=== PATIENT | female | born 1935 | race Caucasian/White ===

== ENCOUNTER 2025-03-25 16:01 | Outpatient (AMB) | payer MEDICARE, SELFPAY ==
--- NOTE | 2025-03-25 16:04 | MHC.OFFVIS ---
Intake Visit Reasons: 6m/PN Accompanied by: Daughter Allergies No Known Allergies Allergy (Verified 03/25/25 16:12) Medication List - Last Reconciled 03/25/25 by Andra Whitley CNP atorvastatin 80 mg PO DAILY diltiazem HCl ER (DILT-XR) 120 mg PO DAILY furosemide 20 mg PO DAILY metformin ER 1,500 mg PO QPM pregabalin 300 mg PO BID 90 days HPI Comments Details: She was doing about the same. Pain in legs was about the same, slightly more bothersome and she was asking about increased dose of pregabalin. Pain was okay during the day for the most part and was more bothersome when she was sitting and relaxing in the evening. She was having more sharp, shooting pains to left leg, especially at night time. She had some throbbing pain to left foot. No recent falls. She has been having some swelling to lower legs. No redness, warmth, calf pain or tenderness. She has not had any testing/imaging done due to cost/insurance coverage. 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 She was found to have diabetes that has been well controlled with oral medications a few years after onset of symptoms. Has some difficulty going up and down stairs, unable to walk very far. Brief syncopal episode on 12/13/2017 where she found herself suddenly on the kitchen floor without remembering the fall when she was alone. No confusion, injury, or incontinence. [facility] Medical History (Updated 03/25/25 @ 16:30 by Andra Whitley CNP) Syncope Carpal tunnel syndrome Hypertension Diabetes mellitus Peripheral neuropathy Review of Systems Const Denies chills, Denies daytime sleepiness, Reports difficulty sleeping, Denies fatigue, Denies fever(s), Denies frequent falls, Denies headache(s), Denies increased appetite, Denies poor appetite, Denies snoring, Denies weakness, Denies weight gain and Denies weight loss Eyes Denies loss of vision ENT Denies vertigo, Denies dizziness, Denies headache(s) and Denies neck pain Card Denies chest pain at rest, Denies chest pain with activity, Denies syncope, Reports leg edema, Denies palpitations, Denies dyspnea and Denies dyspnea on exertion Resp Denies cough, Denies dyspnea, Denies dyspnea on exertion and Denies snoring GI Denies abdominal pain, Denies constipation, Denies heartburn, Denies diarrhea and Denies nausea Denies urinary frequency, Denies urinary incontinence and Denies urinary urgency Musc Reports abnormal gait (balance difficulty), Reports back pain, Denies myalgias, Reports arthralgias, Denies neck pain, Reports numbness and Reports tingling Neuro Reports abnormal gait (balance difficulty), Denies vertigo, Denies dizziness, Denies syncope, Denies frequent falls, Denies headache(s), Denies lack of coordination, Denies loss of vision, Denies memory loss, Reports numbness, Denies Other visual disturbances, Denies restless legs, Denies seizure-like activity, Reports tingling, Denies paresthesias, Denies tremor(s) and Denies weakness Psych Denies anxiety, Denies depression, Denies auditory hallucinations, Denies memory loss and Denies visual hallucinations Endo Denies fatigue and Denies palpitations Physical Exam Const Other: General Appearance:? normal, in no acute distress. Heart:? S1, S2 normal, no murmurs. Lungs:? clear anteriorly and posteriorly. Musculoskeletal:? normal. Extremities:? BLE edema R > L. Psych:? alert, oriented, cognitive function intact, cooperative with exam. Neuro Other: Abnormal Neurological Findings:?Decreased pinprick sensation below the midshin level. Decreased vibration below the mid tarsal level. DTR trace. Weakness of the abductor pollicis brevis muscle, R > L. Mental Status: alert and oriented X 3. Normal attention, orientation, memory, and affect. Cranial Nerves: Pupils are equal, round, and reactive to light. External ocular muscles are intact. Visual posadas are full, no ptosis. Face is symmetrical, no facial weakness or droop. Facial sensations are normal. Tongue protrudes in midline. Palate elevates symmetrically. Shoulder shrugging is normal. Hearing is decreased. Motor Examination: As above, otherwise normal muscle tone, bulk and strength. No atrophy or fasciculations. No drift of the extended upper extremities. DTR trace. Sensory Exam: As above, otherwise normal light touch, temperature, pinprick, vibration, and joint-position sensations. Rhomberg sign is absent. Coordination: No ataxia. No titubation. Gait Exam: Slow and cautious. Cerebellar Signs: [id number] is okay. Extrapyramidal System: No tremor, rigidity with normal facial expressions. No bradykinesia. No bradyphrenia. Normal arm swing and posture. No propulsion or retropulsion. Speech: Normal. Results Reviewed Results Reviewed: X-ray of the lumbosacral spine shows L4-5 anterior subluxation and degen disc changes 07/18/17 NCV/EMG: Moderate bilateral Carpal tunnel syndrome in the upper extremities. 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 Normal EMG in the right C5-T1 and right L4-S1 innervated muscles. 12/30/17 EEG-WNL Assessment & Plan Assessment & Plan (1) Peripheral neuropathy: Code(s): G62.9 - Polyneuropathy, unspecified Category: Medical Qualifiers: Peripheral neuropathy type: polyneuropathy, unspecified Qualified Code(s): G62.9 - Polyneuropathy, unspecified Plan: Continue pregabalin 300mg 1 capsule twice a day. Start tramadol 50mg 1/2-1 tablet at bedtime as needed for pain, use/side effects reviewed. (2) Spinal stenosis of lumbar region: Code(s): M48.061 - Spinal stenosis, lumbar region without neurogenic claudication Category: Medical Qualifiers: Neurogenic claudication status: without neurogenic claudication Qualified Code(s): M48.061 - Spinal stenosis, lumbar region without neurogenic claudication (3) Syncope: Code(s): R55 - Syncope and collapse Category: Medical Qualifiers: Syncope type: unspecified Qualified Code(s): R55 - Syncope and collapse (4) Carpal tunnel syndrome: Code(s): G56.00 - Carpal tunnel syndrome, unspecified upper limb Category: Medical Qualifiers: Laterality: bilateral Qualified Code(s): G56.03 - Carpal tunnel syndrome, bilateral upper limbs (5) Bilateral lower extremity edema: Code(s): R60.0 - Localized edema Category: Medical Plan: She has not had any testing/imaging done due to cost/insurance coverage. Discussed option for u/s, declining at this time. Follow up with PCP. ER precautions reviewed. Plan Meds tried: Gabapentin Medications: New tramadol 25 - 50 mg (0.5 - 1 x 50 mg) PO BEDTIME 30 tabs 0RF 30 days Coding Level of Care Code Est Pt Level 4 (69850) Diagnoses Peripheral polyneuropathy G62.9 Peripheral neuropathy type: polyneuropathy, unspecified Spinal stenosis of lumbar region without neurogenic claudication M48.061 Neurogenic claudication status: without neurogenic claudication Syncope, unspecified syncope type R55 Syncope type: unspecified Bilateral carpal tunnel syndrome G56.03 Laterality: bilateral Bilateral lower extremity edema R60.0
--- OUTSIDE RECORDS SUMMARY | 2025-03-25 17:55 | XMS_ITS | Clinical Summary ---
Author Organization [facility] Address [address] [place] [address] Care Team Providers Care Caster Helper Name Role Phone Carni Modi MD Primary Care Provider [phone] Allergies Active Allergy Reactions Criticality Noted Date Comments Lisinopril Other 09/16/2009 Caused a cough per pt Medications aspirin 81 mg chewable tablet Take 81 mg by mouth daily. Active FREESTYLE LANCETS MISC USE 1 LANCET TO TEST BLOOD SUGAR DAILY 07/16/20 21 Active blood sugar diagnostic (FreeStyle Lite Strips) test strip USE DIRECTED TO CHECK BLOOD SUGAR 1 TIME DAILY 07/16/20 21 Active nystatin (MYCOSTATIN) 100,000 unit/gram powder Apply 2 g topically 2 times daily. 05/10/20 24 Active pregabalin (LYRICA) 300 mg capsule Take 1 Capsule by mouth 2 times daily. 08/28/19 23 Active cyanocobalamin (VITAMIN B-12) 1,000 mcg tablet Take 1,000 mcg by mouth daily. Active DILT-XR 120 mg 24 hr capsuleIndicatio ns:Essential (primary) hypertension TAKE 1 CAPSULE BY MOUTH DAILY FOR 360 DAYS. 90 capsule 3 01/22/20 25 Active furosemide (LASIX) 20 mg tablet TAKE 1 TABLET BY MOUTH EVERY DAY 90 tablet 01/23/20 25 Active metFORMIN XR (GLUCOPHAGE-XR) 500 mg 24 hr tablet Take 3 tablets (1,500 mg total) by mouth 1 (one) time each day in the evening. 270 tablet 1 02/09/20 25 Active Lipitor 80 mg tablet TAKE 1 TABLET 1 TIME DAILY GENERIC FOR LIPITOR 90 tablet 1 03/15/20 25 Active atorvastatin (Lipitor) 80 mg tablet Take 1 tablet (80 mg total) by mouth 1 (one) time each day. 90 tablet 1 10/02/19 25 025 Discontinued Active Problems Problem Noted Date Diagnosed Date Perforation of right tympanic membrane Overview (06/05/2024): Dr. Leary has advised AGAINST CERUMEN IRRIGATION - future episodes to be addressed by ENT CLL (chronic lymphocytic willem kemia) ([facility] V24, [facility] V28) 2024 Kidney mass 01/01/2021 Overview (06/05/2024): Sees urology CAD (coronary artery disease) 11/27/2020 Overview (06/05/2024): STEMI and CABG 10/19 Spinal stenosis, lumbar region with neurogenic c laudication 08/11/2018 Primary osteoarthritis of both hips 05/24/2018 Lumbar degenerative disc disease 04/01/2018 CTS (carpal tunnel syndrome) 11/28/2017 Microalbuminuria 10/06/2015 Rectocele 08/27/2015 Type 2 diabetes, controlled, with renal manifestation ([facility] V24, [facility] V28) 01/29/2015 Type II diabetes mellitus wi th neurological manifestations ([facility] V24, [facility] V28) 09/06/2011 Diverticulosis of colon without hemorrhage 05/26 Overview (06/05/2024): Incidental finding at colonoscopy 05/26/2011. Hyperlipidemia 08/27/2009 Neuropathy 08/27/2009 Primary hypertension 08/27/2009 Encounters Date Type Department Care Team Description 01/24/2025 1:00 PM EDT Office Visit Adult Medicine [address] [phone] Cathie Fairchild PA Type 2 diabetes mellitus with neurological manifestations, controlled ([facility] V24, [facility] V28) (Primary Dx); Primary hypertension; Microalbuminuria; Mixed hyperlipidemia; Controlled type 2 diabetes mellitus with stage 3 chronic kidney disease, without long-term current use of insulin ([facility], [facility] V28); Neuropathy; Coronary artery disease involving apache coronary artery of apache heart without angina pectoris; CLL (chronic lymphocytic leukemia) ([facility], [facility] V28); Type II diabetes mellitus with neurological manifestations ([facility], [facility] V28) 12/26/2024 Nurse Triage Adult [address] [phone] Carin Modi MD from Last 3 Months Immunizations Name Administration Dates Next Due Influenza trivalent, 0.5mL ( Fluad) 65yo and older 2024,05/09/2023,04/15/2021,04/24,04/19/2019,04/07/2018,04/14/2015 Influenza trivalent, 0.5mL, preservative free (Fluarix; FluLaval; Fluzone) ages 6mo and older (Afluria) 3 years and older 05/19/2013,05/09/2012,05/06/2011,06/08 Influenza, Unspecified 05/04/2022,2016,04/20/2016,04/19 Pfizer (ages 12 & older) Biv alent, COVID-19 05/09/2023 Pfizer SARS-CoV-2 COVID-19, mRNA, LNP-S, preservative free 06/12/2021 Pneumococcal conjugate 13 va lent (Prevnar 13, PCV13) 2mo and older 06/02/2015 Pneumococcal polysaccharide 23 valent (Pneumovax 23) 2yo and older 11/15/2016 RSV, bivalent, protein subun it RSVpreF, 0.5mL, Preservative Free (Arexvy) 60yo and older 07/16/2023 Respiratory syncytial virus (RSV), unspecified 07/16/2023 Td Tetanus diptheria (Tdvax) 7yo and older 01/31/2023,08/27/2009 Tdap Tetanus diptheria acell ular pertussis (Boostrix; Adacel) 7yo and older 10/19/2012 Zoster Live 01/03/2012 Surgical History Surgery Date Site/Laterality Comments OTHER SURGICAL HISTORY : HISTORICAL EAR SURGERY COLONOSCOPY 05/26/2011 no polyps BREAST SURGERY Right : b9 HYSTERECTOMY Medical History Medical History Date Comments Diverticulosis of colon (wit hout mention of hemorrhage) HTN (hypertension) 08/27/2009 Hyperlipidemia 08/27/2009 Neuropathy 08/27/2009 Type 2 diabetes, controlled, with renal manifestation ([facility], [facility] V28) 01/29/2015 Microalbuminuria 10/06/2015 DX:Microalbumin uria CTS (carpal tunnel syndrome) 11/28/2017 Kidney mass 01/01/2021 CAD (coronary artery disease) Type 2 diabetes mellitus wit h neurological manifestations, controlled ([facility], [facility] V28) 09/06/2011 Perforation of right tympanic membrane Dr. Leary has advised AGAINST CERUMEN IRRIGATION - future episodes to be addressed by ENT CLL (chronic lymphocytic willem kemia) ([facility] V24, [facility] V28) 2024 Family History Medical History Relation Name Comments Hodgkin's lymphoma Brother Hypertension Father [place] Ovarian cancer Maternal Grandmother Diabetes Mother Other: hodgkins disease Other neph ew Breast cancer Neg Hx Relation Name Status Comments Brother Father (Age 65) Maternal Grandmother Mother (Age 81) Other Social History Tobacco Use Types Packs/Day Years Used Date Smoking Tobacco: Never Smokeless Tobacco: Never Tobacco Cessation:Counseling Given: Not Answered Alcohol Use Standard Drinks/Week Comments Not Currently 0 (1 standard drink = 0.6 oz pur e alcohol) Housing Instability Answer Date Recorde d Are you worried that in the next 2 months you may not have stable housing? No 01/23/2025 Food Access & Nutrition Answer Date Rec orded Do you have access to a vari ety of food including fruits and vegetables? Yes 01/23/2025 Health Literacy Answer Date Recorded How often do you need to hav e someone help you when you read instructions, pamphlets, or other written material from your doctor or pharmacy? Never 01/23/2025 Caregiver: How often do you need to have someone help you when you read instructions, pamphlets, or other written material from your doctor or pharmacy? Not on file 01/23/2025 Financial Risk Answer Date Recorded How hard is it for you to pa y for the very basics like food, housing, medical care, and air conditioning / heating? Unable to respond 01/23/2025 Transportation Answer Date Recorded Has the lack of transportati on kept you from meetings, work, or from getting things needed for daily living? No Has the lack of transportati on kept you from medical appointments or from getting medications? No 01/23/2025 Social Isolation Answer Date Recorded How often do you feel lonely or isolated from th ose around you? Rarely 01/23/2025 Food Risk Answer Date Recorded Within the past 12 months we worried whether our food would run out before we got money to buy more. Not asked 01/23/2025 Within the past 12 months th e food we bought just didn't last and we didn't have money to get more. Not asked 01/23/2025 Dependent Care Answer Date Recorded Do you need help finding or paying for care for your loved ones. For example, director of early childhood or elderly care for an older adult? No 01/23/2025 Education Answer Date Recorded Do you think completing more education or training, like finishing a GED, going to college, or learning a trade, would be helpful for you? Unable to respond 01/23/2025 Employment and Income Answer Date Recor ded During the last four weeks, have you been actively looking for work? No 01/23/2025 Living Situation Answer Date Recorded What is your living situation? 0 01/23/2025 Comments Unknown Sex and Gender Information Value Date Recorded Sex Assigned at Not on file Legal Sex Female 2:47 PM EST Gender Identity Not on file Sexual Orientation Not on file Obstetrics History Last Filed Vital Signs Vital Sign Reading Time Taken Comments Blood Pressure 120/60 01/24/2025 1:08 PM EDT Pulse 60 01/24/2025 1:08 PM EDT Temperature 36.2 C (97.2 F) 01/24/2025 1:08 PM EDT Respiratory Rate 14 01/24/2025 1:08 PM EDT Oxygen Saturation 95% 01/24/2025 1:08 PM EDT Inhaled Oxygen Concentration - - Weight 67.1 kg (148 lb) 01/24/2025 1:08 PM EDT Height 149.9 cm (4' 11 ) 01/24/2025 1:08 PM EDT Body Mass Index 29.89 01/24/2025 1:08 PM EDT Plan of Treatment Upcoming Encounters Date Type Department Care Team (Late st Contact Info) Description 04/03/2025 1:30 PM EDT Office Visit Orthopedic Surgery - [place] [address] [facility] [address] [place] [phone] Jagdish Hernandez, DPM [address] [place] [address] 04/09/2025 11:15 AM EDT Office Visit Adult Medicine [facility] [address] [place] [phone] Carin Modi MD [address] [place] [address] 05/15/2025 3:15 PM EDT Office Visit [facility] Hematology Oncology [address] [place] [phone] Can Fernandes MD [address] [place] [address] Health Maintenance Due Date Last Done Comments Diabetes: Annual Retina Eye Exam 1945 Zoster Vaccines (1 of 2) 02/28/2012 01/03/2012 Osteoporosis Screening (Bone Density Screening) 07/10/2022 Diabetes: Annual Foot Exam 11/01/2024 11/02/2023 COVID-19 Vaccine (6 - Pfizer risk 2023- season) 2024 06/09/2024, 05/09/2023, 06/12/2021, Additional history exists Medicare Annual Wellness Visit 02/15/2025 02/16/2024 Influenza Vaccine (#1) 2025 , 05/09/2023, 05/04/2022, Additional history exists Diabetes: Blood Sugar Control Test (HGBA1C) 07/23/2025 01/21/2025, 08/31/2024, 2024, Additional history exists Hypertension/CHF/CAD Annual BMP Blood Test 01/21/2026 01/21/2025, 07/10/2024, 07/06/2024, Additional history exists Social Influencers of Health Screening 01/23/2026 01/23/2025 Falls Risk Assessment 01/24/2026 01/24/2025, 024 Cholesterol Screening (Lipid Panel) 01/21/2030 01/21/2025, 10/12/2023 DTaP,Tdap,and Td Vaccines (4 - Td or Tdap) 01/31/2033 01/31/2023, 10/19/2012, 08/27/2009 Pneumococcal Vaccine: 50+ Years Completed 11/15/2016, 06/02/2015 RSV Immunization Adult Patients Completed 07/16/2023, 07/16/2023 RSV Immunization Patients Under 20 months Aged Out 07/16/2023 No longer eligible based on patient's age to complete this topic Depression Screening Completed 01/23/2025 HIB Vaccines Aged Out No longer eligi ble based on patient's age to complete this topic HPV Vaccines Aged Out No longer eligi ble based on patient's age to complete this topic Hepatitis A Vaccines Aged Out No long er eligible based on patient's age to complete this topic Hepatitis B Vaccines Aged Out No long er eligible based on patient's age to complete this topic IPV Vaccines Aged Out No longer eligi ble based on patient's age to complete this topic MMR Vaccines Aged Out No longer eligi ble based on patient's age to complete this topic Meningococcal ACWY Vaccine Aged Out N o longer eligible based on patient's age to complete this topic Meningococcal B Vaccine Aged Out No l onger eligible based on patient's age to complete this topic Varicella Vaccines Aged Out No longer eligible based on patient's age to complete this topic Procedures Procedure Name Priority Date/Time Associated Diagnosis Comments PATHOLOGIST REVIEW BLOOD SMEAR Routine 01/21/2025 10:38 AM EDT CLL (chronic lymphocytic leukemia) ([facility] V24, [facility] V28) CBC WITH AUTO DIFFERENTIAL Routine 01/21/2025 10:38 AM EDT CLL (chronic lymphocytic leukemia) ([facility] V24, [facility] V28) COMPREHENSIVE METABOLIC PANEL Routine 01/21/2025 10:38 AM EDT Coronary artery disease involving apache coronary artery of apache heart without angina pectoris Controlled type 2 diabetes mellitus with stage 3 chronic kidney disease, without long-term current use of insulin ([facility], [facility] V28) HEMOGLOBIN A1C Routine 01/21/2025 10:38 AM EDT Controlled type 2 diabetes mellitus with stage 3 chronic kidney disease, without long-term current use of insulin ([facility]24, [facility] V28) LIPID PANEL WITH REFLEX TO DIRECT LDL Routine 01/21/2025 10:38 AM EDT Other hyperlipidemia CBC AND DIFFERENTIAL Routine 01/21/2025 10:38 AM EDT CLL (chronic lymphocytic leukemia) ([facility], [facility] V28) from Last 3 Months Results * (ABNORMAL) Lipid panel with reflex to direct LDL (01/21/2025 10:38 AM EDT) Cholesterol 125 0 - 200 mg/dL LAB CHEMISTRY METHOD 01/21/2025 2:27 PM [facility] Triglycerides 191(H) 0 - 150 mg/dL LAB CHEMISTRY METHOD 01/21/2025 2:27 PM [facility] HDL 45 >=40 mg/dL LAB CHEMISTRY METHOD 01/21/2025 2:27 PM [facility] LDL Calculated 42 0 - 100 mg/dL LAB CHEMISTRY METHOD 01/21/2025 2:27 PM [facility] VLDL Cholesterol Elier 38.2 mg/dL LAB CHEMISTRY METHOD 01/21/2025 2:27 PM [facility] Non HDL Chol. (LDL+VLDL) 80 <145 mg/dL LAB CHEMISTRY METHOD 01/21/2025 2:27 PM [facility] Chol/HDL Ratio 2.8 0.0 - 4.4 LAB CHEMISTRY METHOD 01/21/2025 2:27 PM [facility] Blood Venous blood specimen / Unknown Venipuncture / Unknown 01/21/2025 10:38 AM EDT 01/21/2025 10:38 AM EDT us Carin Modi MD LAB BLOOD ORDERABLES Final Resul t Performing Organization Address [facility]/ZIP Co de Phone Number [facility] [address] [place] [address], [place] [phone] * Pathology review, blood smear (01/21/2025 10:38 AM EDT) Pathologist Review Blood Smear Lymphocytosis with abnormal lymphocytes and numerous smudge cells, consistent with patient's previously diagnosed CLL/SLL. Thrombocytopenia confirmed (a rare minute platelet clump is noted). 01/21/2025 3:35 PM EDT [facility] Blood Venous blood specimen / Unknown Venipuncture / Unknown 01/21/2025 10:38 AM EDT 01/21/2025 10:38 AM EDT Carin Modi MD LAB BLOOD ORDERABLES Final Resul t Performing Organization Address [facility]/ZIP Co de Phone Number [facility] [address] [place] [address], [place] [phone] * (ABNORMAL) CBC auto differential (01/21/2025 10:38 AM EDT) WBC 32.9(H) 4.8 - 10.8 K/mcL LAB HEMETOLOGY METHOD 01/21/2025 2:21 PM EDT [facility] RBC 4.90(H) 3.80 - 4.80 M/mcL LAB HEMETOLOGY METHOD 01/21/2025 2:21 PM EDT [facility] Hemoglobin 14.4 11.5 - 16.0 g/dL LAB HEMETOLOGY METHOD 01/21/2025 2:21 PM EDT [facility] Hematocrit 44.5 35.0 - 47.0 % LAB HEMETOLOGY METHOD 01/21/2025 2:21 PM EDT [facility] MCV 90.8 79.0 - 98.0 FL LAB HEMETOLOGY METHOD [facility] MCH 29.4 27.0 - 32.0 pcg LAB HEMETOLOGY METHOD [facility] MCHC 32.4 32.0 - 37.0 g/dL LAB HEMETOLOGY METHOD 01/21/2025 2:21 PM [facility] RDW 14.9 11.0 - 15.0 % LAB HEMETOLOGY METHOD 01/21/2025 2:21 PM [facility] Platelets 122(L) 130 - 400 K/mcL LAB HEMETOLOGY METHOD 01/21/2025 2:21 PM [facility] MPV 12.0(H) 7.0 - 11.0 FL LAB HEMETOLOGY METHOD 01/21/2025 2:21 PM [facility] NRBC 0.1 <1.0 % LAB HEMETOLOGY METHOD 01/21/2025 2:21 PM [facility] NRBC Absolute 0.02 <0.10 K/mcL LAB HEMETOLOGY METHOD 01/21/2025 2:21 PM [facility] Neutrophils Relative 13.6 % LAB HEMETOLOGY METHOD 01/21/2025 2:21 PM [facility] Comment:This is an appended report. These results have been appended to a previously preliminary verified report. Lymphocytes Relative 80.6 % LAB HEMETOLOGY METHOD 01/21/2025 2:21 PM [facility] Comment:This is an appended report. These results have been appended to a previously preliminary verified report. Monocytes Relative 4.9 % LAB HEMETOLOGY METHOD 01/21/2025 2:21 PM [facility] Comment:This is an appended report. These results have been appended to a previously preliminary verified report. Eosinophils Relative 0.6 % LAB HEMETOLOGY METHOD 01/21/2025 2:21 PM [facility] Comment:This is an appended report. These results have been appended to a previously preliminary verified report. Basophils Relative 0.1 % LAB HEMETOLOGY METHOD 01/21/2025 2:21 PM [facility] Comment:This is an appended report. These results have been appended to a previously preliminary verified report. Immature Granulocytes Relative 0.2 % LAB HEMETOLOGY METHOD 01/21/2025 2:21 PM [facility] Comment:This is an appended report. These results have been appended to a previously preliminary verified report. Neutrophils Absolute 4.49 1.50 - 7.00 K/mcL LAB HEMETOLOGY METHOD 01/21/2025 2:21 PM [facility] Comment:This is an appended report. These results have been appended to a previously preliminary verified report. Lymphocytes Absolute 26.52(H) 1.00 - 5.00 K/mcL LAB HEMETOLOGY METHOD 01/21/2025 2:21 PM [facility] Comment:This is an appended report. These results have been appended to a previously preliminary verified report. Monocytes Absolute 1.61(H) 0.20 - 1.00 K/mcL LAB HEMETOLOGY METHOD 01/21/2025 2:21 PM [facility] Comment:This is an appended report. These results have been appended to a previously preliminary verified report. Eosinophils Absolute 0.20 0.00 - 0.50 K/mcL LAB HEMETOLOGY METHOD 01/21/2025 2:21 PM [facility] Comment:This is an appended report. These results have been appended to a previously preliminary verified report. Basophils Absolute 0.03 0.00 - 0.20 K/mcL LAB HEMETOLOGY METHOD 01/21/2025 2:21 PM EDT [facility] Comment:This is an appended report. These results have been appended to a previously preliminary verified report. Immature Granulocytes Absolute 0.06(H) 0.00 - 0.03 K/mcL LAB HEMETOLOGY METHOD 01/21/2025 2:21 PM EDT [facility] Comment:This is an appended report. These results have been appended to a previously preliminary verified report. Blood Venous blood specimen / Unknown Venipuncture / Unknown 01/21/2025 10:38 AM EDT 01/21/2025 10:38 AM EDT us Carin Modi MD LAB BLOOD ORDERABLES Final Resul t Performing Organization Address [facility] Co de Phone Number [facility] [address] [place] [address], [place] [phone] * (ABNORMAL) Hemoglobin A1c (01/21/2025 10:38 AM EDT) Hemoglobin A1C 9.4(H) <6.5 % LAB CHEMISTRY METHOD 01/21/2025 9:17 PM EDT [facility] Mean Bld Glu Estim. 223 mg/dL LAB CHEMISTRY METHOD 01/21/2025 9:17 PM EDT [facility] Blood Venous blood specimen / Unknown Venipuncture / Unknown 01/21/2025 10:38 AM EDT 01/21/2025 10:38 AM EDT us Carin Modi MD LAB BLOOD ORDERABLES Final Resul t Performing Organization Address City/[facility]/ZIP Co de Phone Number [facility] [address] [place] [address], [place] [phone] * (ABNORMAL) Comprehensive metabolic panel (01/21/2025 10:38 AM EDT) Sodium 142 133 - 145 mmol/L LAB CHEMISTRY METHOD 01/21/2025 2:27 PM [facility] Potassium 3.9 3.5 - 5.5 mmol/L LAB CHEMISTRY METHOD 01/21/2025 2:27 PM [facility] Chloride 105 96 - 110 mmol/L LAB CHEMISTRY METHOD 01/21/2025 2:27 PM [facility] CO2 30 21 - 32 mmol/L LAB CHEMISTRY METHOD 01/21/2025 2:27 PM [facility] Anion Gap 7 3 - 11 LAB CHEMISTRY METHOD 01/21/2025 2:27 PM [facility] Glucose 149(H) 70 - 100 mg/dL LAB CHEMISTRY METHOD 01/21/2025 2:27 PM [facility] BUN 18 5 - 25 mg/dL LAB CHEMISTRY METHOD 01/21/2025 2:27 PM [facility] Creatinine 0.76 0.50 - 1.10 mg/dL LAB CHEMISTRY METHOD 01/21/2025 2:27 PM [facility] eGFR 76 >=60 mL/min/1. 73m2 LAB CHEMISTRY METHOD 01/21/2025 2:27 PM [facility] Comment:Calculation based on the Chronic Kidney Disease Epidemiology Collaboration (CKD-EPI) equation refit without adjustment for race. BUN/Creatinine Ratio 23.7 LAB CHEMISTRY METHOD 01/21/2025 2:27 PM [facility] Calcium 9.2 8.5 - 10.5 mg/dL LAB CHEMISTRY METHOD 01/21/2025 2:27 PM [facility] AST (SGOT) 24 10 - 42 unit/L LAB CHEMISTRY METHOD 01/21/2025 2:27 PM [facility] ALT (SGPT) 26 10 - 60 unit/L LAB CHEMISTRY METHOD 01/21/2025 2:27 PM [facility] Alkaline Phosphatase 201(H) 42 - 121 unit/L LAB CHEMISTRY METHOD 01/21/2025 2:27 PM EDT [facility] Total Protein 6.7 6.0 - 8.0 g/dL LAB CHEMISTRY METHOD 01/21/2025 2:27 PM EDT [facility] Albumin 3.4 3.2 - 5.0 g/dL LAB CHEMISTRY METHOD 01/21/2025 2:27 PM EDT [facility] Total Bilirubin 1.7(H) 0.0 - 1.4 mg/dL LAB CHEMISTRY METHOD 01/21/2025 2:27 PM EDT [facility] Blood Venous blood specimen / Unknown Venipuncture / Unknown 01/21/2025 10:38 AM EDT 01/21/2025 10:38 AM EDT us Carin Modi MD LAB BLOOD ORDERABLES Final Resul t [facility] [address] [place] [address], from Last 3 Months Insurance [employer] Care Teams Caster Helper Relationship Specialty Start Date End Date Carin Modi MD [address] [place] [id number] PCP - General 05/14/24
--- OUTSIDE RECORDS SUMMARY | 2025-03-25 17:55 | XMS_ITS ---
Author Name [facility] Organization Unknown Care Team Organization Name Specialty Phone Email Start Date End Da te [facility] Carin Modi Primary Care 06/08/2022
== END 2025-03-25 16:23 | disposition home or self-care (01) ==
LOC: HO.HSM 16:01
PROVIDERS: PCP Internal Medicine; Referring Provider Internal Medicine; Visit Provider Registered Nurse
DX: G62.9 Polyneuropathy, unspecified (principal); M48.061 Spinal stenosis, lumbar region without neurogenic claudication; R55 Syncope and collapse; G56.03 Carpal tunnel syndrome, bilateral upper limbs; R60.0 Localized edema
CPT/HCPCS: 99214

== ENCOUNTER → 2025-03-25 16:01 | Outpatient (BNVA) | payer MEDICARE, SELFPAY | PROVIDERS: PCP Internal Medicine; Referring Provider Internal Medicine; Visit Provider Registered Nurse | DX: M48.061 Spinal stenosis, lumbar region without neurogenic claudication (principal); R55 Syncope and collapse; G56.03 Carpal tunnel syndrome, bilateral upper limbs; R60.0 Localized edema; G62.9 Polyneuropathy, unspecified | CPT/HCPCS: 99212 ==